=== PATIENT | female | born 1950 | race Caucasian/White ===

== ENCOUNTER 2020-12-04 06:44 | Observation (INO) ==
--- NOTE | 2020-11-27 13:31 | PAT Medication Instructions ---
Medication Instructions Date of Service November 27, 2020 Home Medications acetaminophen [Tylenol Arthritis Pain] 1,300 mg PO Q12H PRN aspirin [Aspir-81] 81 mg PO QAM atorvastatin 20 mg PO HS hydrochlorothiazide 25 mg PO QAM meloxicam 15 mg PO QAM metoprolol succinate 100 mg PO QAM potassium chloride 10 meq PO QAM ASK your surgeon for instructions meloxicam 15 mg PO QAM DO NOT take the morning of surgery hydrochlorothiazide 25 mg PO QAM potassium chloride 10 meq PO QAM Take morning of surgery With a small sip of water, OTHERWISE NOTHING TO EAT OR DRINK AFTER MIDNIGHT: acetaminophen [Tylenol Arthritis Pain] 1,300 mg PO Q12H PRN (okay to take up to 4 hours prior to surgery if needed) aspirin [Aspir-81] 81 mg PO QAM (continue as normal unless told otherwise by surgeon) metoprolol succinate 100 mg PO QAM Take evening before surgery acetaminophen [Tylenol Arthritis Pain] 1,300 mg PO Q12H PRN (if needed) atorvastatin 20 mg PO HS Other Notes If you have any questions please call us at [phone] or [phone] or [phone] or [phone]
--- NOTE | 2020-11-28 13:31 | Anesthesiology Consultation ---
Date of Service November 28, 2020 Assessment & Plan (1) Encounter for pre-operative examination: Chart Review Chart Review: Acceptable Risk for Surgery (pending surgeon ordered PCP clearance (done 11/22/20) and preop Covid testing results ) and Patient seen in Pre Admission Testing Awaiting surgeon ordered PCP clearance (done 11/22/20) Per PAT appt on 11/28/20, pt resides in [facility]. Wears mask, uses good hand hygiene and socially distances. Did travel to [facility] to visit children on the weekend of 11/16/20. No known Covid positive contacts or Covid related symptoms. No known Covid infection in the past 90 days. Preop Covid testing 11/29/20 at [facility] in [place]= will await results. Educated on importance of self quarantining, social distancing and wearing mask in public both for the patient and household contacts. Pt fully vaccinated. Pt's sister is coming up for her birthday on 11/29/20 and will be staying with her until surgery. Pt's sister is fully vaccinated. Otherwise patient lives alone. Pt educated that she should avoid other contacts from now until surgery due to Covid testing tomorrow- pt voices understanding. May get Covid testing done 11/29/20 or 11/30/20. Teaching & Discussion Pre-Anesthesia Teaching/Discussion Notes: Instructed NPO after midnight before surgery,except medications with 15 cc of water. Medication instructions provided according to the PAT guidelines. History Surgery Operation Date: 12/04/20 12:05 Proposed Procedures p Left Anterior Total Hip Arthroplasty - Jerrell Tam DO Height/Weight Height: 5 ft 3 in Weight: 82.4 kg Allergies Allergy/AdvReac Type Severity Reaction Status Date / Time rosuvastatin [From Crestor] AdvReac Unknown Muscle Pain Verified 11/19/20 13:47 Medications Home Medications Medication Instructions Recorded Confirmed Last Taken acetaminophen [Tylenol Arthritis 1,300 mg PO Q12H PRN 11/19/20 11/19/20 Unknown Pain] aspirin [Aspir-81] 81 mg PO QAM 11/19/20 11/19/20 Unknown atorvastatin 20 mg PO HS 11/19/20 11/19/20 Unknown hydrochlorothiazide 25 mg PO QAM 11/19/20 11/19/20 Unknown meloxicam 15 mg PO QAM 11/19/20 11/19/20 Unknown metoprolol succinate 100 mg PO QAM 11/19/20 11/19/20 Unknown potassium chloride 10 meq PO QAM 11/19/20 11/19/20 Unknown Past Medical History Medical History History of COVID-19 DX'D 05/31/20 [facility] [place], FEVER, ACHINESS, FATIGUE-RECOVERED AT HOME. COMPLETELY RECOVERED Hyperlipidemia Hypertension Osteoarthritis Vertigo ON OCC Exercise / Class Metabolic Activity II 4-5 Yardwork/Stairs/Walk up hill (one flight of stairs - no chest pain ) Past Family History Family History Grandmother (Paternal) Family history of diabetes mellitus Aunt Family history of diabetes mellitus Mother Family hx of colon cancer Past Surgical History Surgical History History of colonoscopy X 3 History of foot surgery RIGHT NEUROMA- Past Anesthesia History No Hx of Anesthesia Complications and No Family Hx of Anesthesia Complications History of PONV No Hx of PONV and No Hx of Motion Sickness Social History Smoking Status: Never smoker Do You Dip or Chew Tobacco: No Hx Alcohol Use: Yes Alcohol type: beer and wine alcohol intake frequency: a few times a month Hx Substance Use: No substance use type: does not use Review of Systems Occ reflux- diet dependent - relieved OTC antacids Occ snoring - no witnessed apnea- no history of sleep study Patient denies chest pain, shortness of breath, dyspnea on exertion, cough, wheezing, palpitations. No hx of seizures, stroke, MA. No hx of blood clots or blood transfusions Physical Exam Vital Signs VITALS BP 155/81 P 71 TEMP 98.0 SP02 97% RESP 16 Constitutional no acute distress ENMT Mouth: no TMJ clicking Thyromental Distance: > or= 3.5 Finger Breadths Mallampati Class: II Getting small filling to right front top tooth (surgeon aware per surgeon) Neck neck extension not limited Respiratory normal respiratory effort; no respiratory distress Auscultation: lungs clear to auscultation bilaterally; no wheezes Cardiovascular Rate/Rhythm: regular rate and regular rhythm Heart Sounds: no murmur Vessels: no carotid bruit Musculoskeletal Spine: no pain with cervical ROM Extremities: extremities normal to inspection Psychiatric Orientation: alert Lab Results Anesthesia Preop Results Results Anesthesia Widget: WBC 7.74 K/uL (4.8-10.8) 11/28/20 Hgb 13.9 g/dL (12.0-16.0) 11/28/20 Hct 41.0 % (37-47) 11/28/20 Plt 217 K/uL (130-400) 11/28/20 Na 138 mmol/L (136-145) 11/28/20 K 3.5 mmol/L (3.5-5.1) 11/28/20 Cl 103 mmol/L (98-107) 11/28/20 CO2 29 mmol/L (21-32) 11/28/20 BUN 21 mg/dl (7-18) H 11/28/20 Creat 0.89 mg/dl (0.6-1.2) 11/28/20 Glucose Level 126 mg/dl (70-99) H 11/28/20 PT 10.3 Seconds (9.0-12.0) 11/28/20 PTT 25.5 Seconds (21.0-31.0) 11/28/20 INR 1.0 (0.9-1.1) 11/28/20 HA1c 5.1 % (4.5-5.6) 11/28/20 Urine Color Yellow 11/28/20 Urine Appearance Clear (Clear) 11/28/20 Urine pH 5.0 (4.5-7.5) 11/28/20 Urine Specific Wilder 1.012 (1.000-1.030) 11/28/20 Urine Protein Negative (Negative) 11/28/20 Urine Glucose (UA) Negative (Negative) 11/28/20 Urine Ketones Negative (Negative) 11/28/20 Urine Blood Negative (Negative) 11/28/20 Urine Nitrite Negative (Negative) 11/28/20 Urine Bilirubin Negative (Negative) 11/28/20 Urine Urobilinogen Negative (Negative) 11/28/20 Urine Leukocyte Esterase Negative (Negative) 11/28/20 Blood Type A Positive 11/28/20 Antibody Screen NEGATIVE 11/28/20 Testing Electrocardiogram Date: 11/28/20 Findings: + NSR @ (64bpm ) Normal EKG per cardio. Chest X-Ray Date: 11/28/20 No pneumothorax. No pleural effusion. Small opacity is seen at the left base which could represent small atelectasis or superimposition of structures. The rest of bilateral lung parenchyma is clear. Cardiomediastinal silhouette is within normal limits in size. No significant pulmonary vascular congestion. Osseous structures: Degenerative changes of the spine are seen at multiple levels. IMPRESSION: 1. Possible small atelectasis at the left base.
--- NOTE | 2020-12-01 16:29 | History & Physical Report ---
Date of Service December 04, 2020 Assessment & Plan (1) Degenerative joint disease of left hip: I have indicated the patient for left anterior total hip replacement. The risks, benefits and complications of surgery were explained to the patient which include but not limited to infection, acute blood loss, DVT/PE, injury to nerves, vessels, bone, soft tissue, arthrofibrosis, chronic pain, failure of the prosthesis, hip dislocation, leg length discrepancy, need for additional surgery, cardiac and pulmonary events and . The patient wished to proceed with surgery and informed consent was obtained at this time. We will plan for 81mg ASA BID post-operatively for DVT prophylaxis. Upon discharge the patient will be discharged home with home health services. Appropriate clearances by PCP were obtained. History of Present Illness Chief Complaint: Left hip pain/DJD Primary Care Provider: Merary Stoll The patient is a 70 year old female who presents with complaints of severe left hip hip pain and DJD. The patient has failed outpatient conservative treatments to this point which included NSAIDs, IA corticosteroid injection, PT and HEP. The patient's pain and limited function have progressed to the point where they severely hinder their activities of daily living and they no longer tolerate exercise programs. They are requesting to proceed with total hip replacement surgery. Allergies Allergy/AdvReac Type Severity Reaction Status Date / Time rosuvastatin [From Crestor] AdvReac Unknown Muscle Pain Verified 12/04/20 07:36 Home Medications Medication Instructions Recorded Confirmed Type acetaminophen [Tylenol Arthritis 1,300 mg PO Q12H PRN 11/19/20 12/04/20 History Pain] aspirin [Aspir-81] 81 mg PO QAM 11/19/20 12/04/20 History atorvastatin 20 mg PO HS 11/19/20 12/04/20 History hydrochlorothiazide 25 mg PO QAM 11/19/20 12/04/20 History meloxicam 15 mg PO QAM 11/19/20 12/04/20 History metoprolol succinate 100 mg PO QAM 11/19/20 12/04/20 History potassium chloride 10 meq PO QAM 11/19/20 12/04/20 History Past Med/Surg History Medical History History of COVID-19 DX'D 05/31/20 [facility] [place], FEVER, ACHINESS, FATIGUE-RECOVERED AT HOME. COMPLETELY RECOVERED Hyperlipidemia Hypertension Osteoarthritis Vertigo ON OCC Surgical History History of colonoscopy X 3 History of foot surgery RIGHT NEUROMA- Family History Grandmother (Paternal) Family history of diabetes mellitus Aunt Family history of diabetes mellitus Mother Family hx of colon cancer Social History Smoking Status: Never smoker Second Hand Exposure: Yes (MOTHER SMOKED); Do You Dip or Chew Tobacco: No; Hx Alcohol Use: Yes Alcohol type: beer and wine Hx Substance Use: No Preferred Language: Jamaican Communication Ability: Effective Sanitary Landfill Supervisor Required: No Beliefs That Will Affect Care: None Current Living Situation: Alone current occupational status: retired Other Information That Helps Us Care for You: No Feels Safe at Home: Yes Safety Concerns: Feels Safe At This Time Assistive Devices: Cane, Contacts and Glasses Assistive Devices Comment: PT WILL WEAR GLASSES DOS/CANE PRN Review of Systems Review of Systems: All systems reviewed & are unremarkable except as noted in HPI & below Constitutional: as per Subjective / HPI Physical Exam Physical Exam: LLE NVSI +EHL/FHL/TA/GS SILT grossly, +2 DP pulse, compartments soft NT, limited painful ROM of the hip, antalgic gait. Constitutional: WD/WN, vitals as above Eyes: PERRL, conjunctivae normal, anicteric sclerae ENMT: external ear and nose normal, oropharynx normal Neck: trachea midline, no thyromegaly Respiratory: normal respiratory effort, lungs clear to auscultation Cardiovascular: RRR, no murmur, no edema Gastrointestinal (Abdomen): normal bowel sounds, soft, nontender, no hepatosplenomegaly Musculoskeletal: no cyanosis or clubbing, extremities motor strength 5/5 Skin: no rashes, warm and dry Neurologic: patellar DTR's 2+ bilat, sensation intact Psychiatric: A+Ox3, euthymic affect Lymphatic: no cervical or axillary lymphadenopathy Results & Data Results & Data ([facility]) Diagnostic Findings Multiple views of the hip demonstrates severe DJD with complete loss of the joint space. +osteophytes, +sclerosis, +subchondral cysts.
[~2020-12-04 06:44] MED LIST: ACETAMINOPHEN 500 MG TAB PO SCH; BUPIVACAINE 0.5 % 5 MG/1 ML PF 10ML VIAL ONE; FAMOTIDINE 20 MG TAB PO SCH; LR 500ML BOLUS, THEN 15ML/HR IV SCH; METOCLOPRAMIDE HCL 10 MG TABLET PO SCH; ROPIVACAINE 0.5% HCL/PF 150 MG, BUPIVACAINE 0.75% MPF 20 ML, EPINEPHrine 30MG/30ML (OR ... INSTIL SCH; TRANEXAMIC ACID 1,000 MG **IV Intra-op IV SCH; TRANEXAMIC ACID 1,000 MG **IV Pre-op IV SCH; dexAMETHasone 4 MG TAB PO SCH
[2020-12-04] MEDS ORDERED: fentaNYL citrate 100 MCG/2 ML VIAL ONE (08:25)
[2020-12-04] MEDS ORDERED: MIDAZOLAM HCL 1 MG/ML 2ML VIAL ONE ×2 (08:25→08:59)
[2020-12-04] MEDS ORDERED: fentaNYL citrate 100 MCG/2 ML VIAL IV PRN (08:41)
[2020-12-04] MEDS ORDERED: ONDANSETRON INJ 2 MG/ML 2 ML VIAL IV PRN ×2 (08:41→13:18)
[2020-12-04] MEDS ORDERED: ATROPINE SULFATE 0.1 MG/ML 10ML SYR IV PRN (08:41)
[2020-12-04] MEDS ORDERED: ePHEDrine sulfate 50 MG/ML AMP IV PRN (08:41)
[2020-12-04] MEDS ORDERED: ceFAZolin 2,000 MG/15 ML IV PUSH IV ONE (09:12)
--- NOTE | 2020-12-04 09:16 | History & Physical Bridge Note ---
Date of Service December 04, 2020 History & Physical Bridge Note I have examined the patient, reviewed the History & Physical and in the interval since the performance of the History & Physical I have noted the following changes of clinical significance: no changes noted
[2020-12-04] MEDS ORDERED: ORTHO JOINT ANESTHETIC ONE (09:26)
[2020-12-04] MEDS ORDERED: PROPOFOL IV EMULSION 10 MG/ML 20 ML VIAL IV ONE ×2 (10:12→11:47)
[2020-12-04] MEDS ORDERED: LIDOCAINE 2% 2 ML VIAL/AMP(20MG/ML) INFIL ONE (10:12)
[2020-12-04] MEDS ORDERED: ONDANSETRON INJ 2 MG/ML 2 ML VIAL ONE (10:21)
[2020-12-04] MEDS ORDERED: ePHEDrine sulfate 50 MG/ML AMP ONE (10:35)
--- NOTE | 2020-12-04 11:40 | Post Operative Brief Note ---
Immediate Post Op Note v1 Date of Surgery December 04, 2020 Pre & Post Diagnosis Operation Date: 12/04/20 09:25 Pre-Op Diagnosis: Unilateral Primary Osteoarthritis, Left Hip I identified the patient and participated in the time-out.: Yes Procedure Operation Date: 12/04/20 09:25 Actual Procedures p Left Anterior Total Hip Arthroplasty(Left) - Jerrell Tam DO Surgeon Jerrell Tam DO Staff Development Manager Bigg García Estimated Blood Loss 190 Findings Consistent with Post-Op Diagnosis Fluids See anesthesia report Specimens Femoral head Anesthesia Type Spinal MAC Complications none Disposition Disposition: Recovery Room Overlapping Procedure I was present for: the critical portions of procedure. I was immediately available: during the entire case. Back up surgeon: was not required during procedure.
--- NOTE | 2020-12-04 11:42 | Operative Report ---
Post Operative Report Pre & Post Diagnosis Operation Date: 12/04/20 09:25 Pre-Op Diagnosis: Unilateral Primary Osteoarthritis, Left Hip I identified the patient and participated in the time-out.: Yes Procedure Operation Date: 12/04/20 09:25 Actual Procedures p Left Anterior Total Hip Arthroplasty(Left) - Jerrell Tam DO Surgeon Jerrell Tam DO Medical Appliance Maker Bigg García Estimated Blood Loss 190 Findings Consistent with Post-Op Diagnosis Fluids See anesthesia report Specimens Femoral head Anesthesia Type Spinal MAC Complications none Disposition Disposition: Recovery Room Indications The patient is a 70-year-old female who presents with severe progressive left hip DJD who has failed outpatient conservative treatments. I indicated the patient for a anterior total hip replacement and the risks and benefits were explained in detail which include but not limited to infection, bleeding, blood clot, damage to surrounding bone, nerves, vessels, soft tissue, hip dislocation, failure of the prosthesis, leg length discrepancy, need for additional surgery and . The patient agreed to proceed with replacement of the hip and informed consent was obtained. Appropriate clearances were obtained. Description of Procedure COMPONENTS USED: [employer] hip system: Acetabulum size 48, femur size 3 a fit high offset, femoral head 32-3, liner 48x32, acetabular screw 25 mm x 1. DESCRIPTION OF PROCEDURE: Following satisfactory spinal anesthesia, the patient was placed supine on the OR table. The right leg was placed in the well leg wheeler and the left leg in the traction device. The left leg was prepared with ChloraPrep and draped sterilely. A surgical timeout was performed, patient identified and site alize verified. Appropriate antibiotics were given. A standard anterior approach in the interval between the sartorius and tensor muscles was performed. Dissection was carried down through subcutaneous tissu es. Electrocautery was utilized for hemostasis. Circumflex femoral vessels were identified, tied and ligated. The anterior capsular fat pad was removed and the capsulotomy was performed revealing the arthritic femoral neck and head. A femoral neck cut was made with reciprocating saw and the bone fragments removed. The acetabular self-retraining retractor was placed. Acetabular reaming was completed under fluoroscopic guidance, a 48 shell was impacted into an anatomic position and secured with a acetabular screw. Local anesthetic was placed and following irrigation, the polyethylene liner was placed. The femur was placed into position of external rotation, extension and adduction. Femoral canal was prepared up to the size 3 a fit high offset. Trial reduction with a 32-3 neck length head showed good soft tissue tension, leg lengths restored, and good fit and fill of the proximal canal using fluoroscopic landmarks. The hip was dislocated. The trial component was removed. The final implant was placed. The hip was irrigated with sterile saline solution and reduced. A Betadine soak was performed. After 3 minutes, the hip was once more irrigated with copious sterile saline solution with bacitracin. Ashwini-incisional soft tissue was injected utilizing [facility] [employer]omix which includes a combination of Ropivicaine 0.5% 150mg, Bupivicaine 0.5%/Epinephrine 1:200,000 30ml, Toradol 30mg, Dexamethasone 4mg, Ketamine 10mg, Clonidine 100mcg and NSS 30ml solution. The capsule was then closed with 1-0 Vicryl interrupted figure of eight sutures. The fascia was closed with a running suture of #1 Vicryl, the subcutaneous tissues with 2-0 Vicryl and the skin was closed with dulce. A sterile dry dressing was applied which included pankaj incisional VAC. The patient tolerated the procedure well and was transported to PACU in stable condition. Due to the complex nature of the procedure, the entire surgery was performed with the operational assistance of Bigg García PA-C. The sales and marketing assistant, under direct supervision, was involved in the actual performance of all aspects of the surgical procedure including patient positioning, hemostasis, tissue retraction, instrument management and wound closure. I attest to the content of the Intraoperative Record and any orders documented therein. Any exceptions are noted below.
--- NOTE | 2020-12-04 11:46 | Fluoroscopy Report ---
FL hip LT 1V HISTORY: 70 years-old Female LEFT ANTERIOR ANAY left hip total joint arthroplasty COMPARISON: None TECHNIQUE: 2 spot fluoroscopic images of the left hip were obtained utilizing 41.3 seconds fluoroscop y time FINDINGS: Left hip total joint arthroplasty demonstrates satisfactory alignment. No acute fracture. Expected po stoperative soft tissue swelling with deep tissue air. No unexpected opaque foreign body identified. Right hip osteoarthritis. IMPRESSION: Fluoroscopic assistance as above. ACT 112: Negative or not required by law. The above report was generated using voice recognition software. It may contain grammatical, syntax o r spelling errors. Electronically signed by: Kleber Longo M.D. 12/04/2020 11:45 AM
--- NOTE | 2020-12-04 12:30 | XRay Report ---
XR hip 1V LT w pelvis HISTORY: 70 years-old Female IN PACU - A/P PELVIS and LATERAL HIP [total joint arthroplasty COMPARISON: Fluoroscopic images of the left hip of same day TECHNIQUE: AP view the pelvis with crosstable lateral view of the left hip FINDINGS: Left hip total joint arthroplasty. Lateral left hip skin dulce with expected postoperative soft tis malachi swelling and deep tissue air. No acute fracture or unexpected opaque foreign body. There is at le ast mild right hip osteoarthritis. Degenerative changes of the lower lumbar spine. IMPRESSION: Left hip total joint arthroplasty with expected postoperative changes. ACT 112: Negative or not required by law. The above report was generated using voice recognition software. It may contain grammatical, syntax o r spelling errors. Electronically signed by: Kleber Longo M.D. 12/04/2020 12:29 PM
[2020-12-04] MEDS ORDERED: HYDROmorphone INJ 0.5 MG/0.5 ML SYR IV PRN (13:18)
[2020-12-04] MEDS ORDERED: METOCLOPRAMIDE HCL INJ 5 MG/ML 2 ML VIAL IV PRN (13:18)
[2020-12-04] MEDS ORDERED: oxyCODONE HCL IR 5 MG TAB (IMMEDIATE RELEASE) PO PRN (13:18)
[2020-12-04] MEDS ORDERED: MAGNESIUM HYDROXIDE SUSP 30 ML UDC PO PRN (13:18)
[2020-12-04] MEDS ORDERED: bisacodyL 10 MG SUPP PR PRN (13:18)
[2020-12-04] MEDS ORDERED: NALOXONE HCL 0.4 MG/1 ML VIAL/CARP IV PRN (13:18)
[2020-12-04] MEDS ORDERED: diphenhydrAMINE Capsule 25 MG CAP PO PRN (13:18)
--- NOTE | 2020-12-04 13:32 | Anesthesiology Progress Note ---
Date of Service December 04, 2020 Anesthesia Post Procedure Vital Signs Vital Signs: Temp Pulse Pulse Pulse Resp BP BP 12/04/20 13:22 36.5 C 63 18 118/76 12/04/20 12:50 36.4 C L 75 16 116/72 12/04/20 12:45 36.2 C L 75 14 112/66 12/04/20 12:35 73 14 117/68 12/04/20 12:25 77 14 120/74 12/04/20 12:15 75 14 112/72 12/04/20 12:05 77 16 111/65 12/04/20 12:03 36.6 C 87 17 109/67 12/04/20 07:14 36.9 C 87 20 178/86 H Pulse Ox 12/04/20 13:22 96 12/04/20 12:50 96 12/04/20 12:45 94 12/04/20 12:35 94 12/04/20 12:25 94 12/04/20 12:15 98 12/04/20 12:05 98 12/04/20 12:03 98 12/04/20 07:14 96 Pain Intensity Right Hip: Pain Intensity: 0 Transfer of Care Handoff Completed per policy Notes Mental Status: alert / awake / arousable and participated in evaluation Patient Amnestic to Procedure: Yes Nausea / Vomiting: adequately controlled Pain: adequately controlled Airway Patency, RR, SpO2: stable & adequate BP & HR: stable & adequate Hydration State: stable & adequate Neuraxial Anesthesia: was administered and sensory block is resolving Anesthetic Complications: no major complications apparent and Pt Satisfied with anesthetic care
[2020-12-04] MEDS: ACETAMINOPHEN 500 MG TAB PO SCH ×2 (14:48→21:07)
[2020-12-04] MEDS: SODIUM CHLORIDE 0.9% 1000ML 1,000 ML IV SCH ×2 (14:48→23:38)
[2020-12-04] MEDS: KETOROLAC TROMETHAMINE 15 MG/ML VIAL IV SCH ×2 (15:39→21:07)
[2020-12-04] MEDS: ceFAZolin 2000MG 2,000 MG/15 ML SYR IV SCH (17:33)
--- NOTE | 2020-12-04 19:50 | Orthopedic Progress Note ---
Date of Service December 04, 2020 Assessment & Plan (1) Degenerative joint disease of left hip: s/p left anterior ANAY -ancef x 24 -DVT ppx: SCDs, TEDs, 81mg ASA BID -WBAT LLE -PT/OT -PO XR demonstrates a well aligned well fixed prothesis without fracture/dislocation -am labs DC planning Admission and Anticipated Discharge Date Admission Date: December 04, 2020 Subjective Post Operative Progress Note Patient seen sitting up in bed, comfortable, denies complaints, pain well controlled, no acute issues. Review of Systems Review of Systems: All systems reviewed & are unremarkable except as noted in HPI & below Constitutional: as per Subjective / HPI Physical Exam Physical Exam: LLE NVSI +EHL/FHL/TA/GS SILT grossly, +2 DP pulse, compartments soft NT, dressing cdi. Constitutional: WD/WN, vitals as above [facility] Vital Signs (Past 12 Hours) Vital Signs Temp Pulse Pulse Resp BP Pulse Ox 12/04/20 15:55 36.3 C L 85 16 123/70 97 12/04/20 14:29 36.5 C 75 16 119/73 96 12/04/20 13:22 36.5 C 63 18 118/76 96 12/04/20 12:50 36.4 C L 75 16 116/72 96 12/04/20 12:45 36.2 C L 75 14 112/66 94 12/04/20 12:35 73 14 117/68 94 12/04/20 12:25 77 14 120/74 94 12/04/20 12:15 75 14 112/72 98 12/04/20 12:05 77 16 111/65 98 12/04/20 12:03 36.6 C 87 17 109/67 98
[2020-12-04] MEDS ORDERED: ATORVASTATIN 20 MG TAB PO SCH (21:00)
[2020-12-04] MEDS ORDERED: SENNA 8.6 MG TAB PO SCH (21:00)
[2020-12-04] MEDS: DOCUSATE SODIUM 100 MG CAP PO SCH (21:06)
[2020-12-05] MEDS: ceFAZolin 2000MG 2,000 MG/15 ML SYR IV SCH (03:03)
[2020-12-05] MEDS: KETOROLAC TROMETHAMINE 15 MG/ML VIAL IV SCH ×2 (03:04→10:04)
[2020-12-05] MEDS: ACETAMINOPHEN 500 MG TAB PO SCH ×2 (05:52→12:48)
[2020-12-05 08:35] LABS: Hematocrit (blood only) 34.4 % (37-47); Hemoglobin 11.3 g/dL (12.0-16.0); Immature Granulocytes # (auto) 0.03 K/uL (0.00-0.02); Immature Granulocytes % (auto) 0.2 %; Lymphocytes # (auto) 1.29 K/uL (1.2-3.4); Lymphocytes % (auto) 10.2 %; Mean Corpuscular Hemoglobin 30.1 pg (25-34); Mean Corpuscular Hgb Conc 32.8 g/dL (32-36); Mean Corpuscular Volume 91.5 fL (80-100); Mean Platelet Volume 9.1 fL (7.4-10.4); Monocytes # (auto) 0.61 K/uL (0.11-0.59); Monocytes % (auto) 4.8 %; Neutrophils # (auto) 10.69 K/uL (1.4-6.5); Neutrophils % (auto) 84.8 %; Platelet Count 228 K/uL (130-400); RDW Coefficient of Variation 13.7 % (11.5-14.5); RDW Standard Deviation 45.6 fL (36.4-46.3); Red Blood Count 3.76 M/uL (4.2-5.4); White Blood Count 12.62 K/uL (4.8-10.8)
[2020-12-05] MEDS: DOCUSATE SODIUM 100 MG CAP PO SCH (08:57)
[2020-12-05] MEDS ORDERED: POTASSIUM CHLORIDE 10 MEQ TABCR PO SCH (09:00)
[2020-12-05] MEDS ORDERED: hydroCHLOROthiazide 25 MG TAB PO SCH (09:00)
[2020-12-05] MEDS ORDERED: METOPROLOL SUCC 50MG EXT REL TAB PO SCH (09:00)
[2020-12-05] MEDS ORDERED: MULTIVITAMIN TAB PO SCH (09:00)
[2020-12-05] MEDS ORDERED: ASPIRIN 81 MG ECTAB PO SCH (09:00)
[2020-12-05 09:07] LABS: BUN Creatinine Ratio 23.6 (10-20); Calcium 8.7 mg/dl (8.5-10.1); Creatinine Clr Calc Pharmacy 60.2 ml/min; Est GFR (African American) 77.2 ml/min; Est GFR (Non-African American) 66.6 ml/min; Potassium 3.9 mmol/L (3.5-5.1)
--- NOTE | 2020-12-05 10:57 | Orthopedic Progress Note ---
Date of Service December 05, 2020 Assessment & Plan (1) Degenerative joint disease of left hip: s/p left anterior ANAY POD#1 -ancef x 24 -DVT ppx: SCDs, TEDs, 81mg ASA BID -WBAT LLE -PT/OT -PO XR demonstrates a well aligned well fixed prothesis without fracture/dislocation -am labs - as above, hgb 11.3 DC planning - home with Admission and Anticipated Discharge Date Admission Date: December 04, 2020 Subjective Post Operative Progress Note Patient seen sitting in chair at bedside, comfortable, denies complaints, pain well controlled, no acute issues. Denies F/C/N/V/SOB/CP. Review of Systems Review of Systems: All systems reviewed & are unremarkable except as noted in HPI & below Constitutional: as per Subjective / HPI Physical Exam Physical Exam: LLE NVSI +EHL/FHL/TA/GS SILT grossly, +2 DP pulse, compartments soft NT, dressing cdi. Constitutional: WD/WN, vitals as above Results & Data ([place]) Vital Signs (Past 12 Hours) Vital Signs Temp Pulse Pulse Resp BP Pulse Ox 12/05/20 08:05 36.4 C L 70 18 150/82 H 99 12/05/20 03:20 37.0 C 80 17 138/81 97 Laboratory Results 12/05/20 12/05/20 12/05/20 Range/Units 08:13 08:13 08:13 WBC 12.62 H (4.8-10.8) K/uL RBC 3.76 L (4.2-5.4) M/uL Hgb 11.3 L (12.0-16.0) g/dL Hct 34.4 L (37-47) % MCV 91.5 (80-100) fL MCH 30.1 (25-34) pg MCHC 32.8 (32-36) g/dL RDW Std Deviation 45.6 (36.4-46.3) fL RDW Coeff of [place] 13.7 (11.5-14.5) % Plt Count 228 (130-400) K/uL MPV 9.1 (7.4-10.4) fL Immature Gran % (Auto) 0.2 % Neut % (Auto) 84.8 % Lymph % (Auto) 10.2 % [place] % (Auto) 4.8 % Eos % (Auto) 0.0 % Baso % (Auto) 0.0 % Neut # (Auto) 10.69 H (1.4-6.5) K/uL Lymph # (Auto) 1.29 (1.2-3.4) K/uL [place] # (Auto) 0.61 H (0.11-0.59) K/uL Eos # (Auto) 0.00 (0-0.5) K/uL Baso # (Auto) 0.00 (0-0.2) K/uL Immature Gran # (Auto) 0.03 H (0.00-0.02) K/uL Sodium 139 (136-145) mmol/L Potassium 3.9 (3.5-5.1) mmol/L Chloride 107 (98-107) mmol/L Carbon Dioxide 24 (21-32) mmol/L Anion Gap 9.0 (3-11) BUN 21 H (7-18) mg/dl Creatinine 0.88 (0.6-1.2) mg/dl Est Cr Clr Drug Dosing 60.2 ml/min Est GFR ( Amer) 77.2 ml/min Est GFR (Non-Af Amer) 66.6 ml/min BUN/Creatinine Ratio 23.6 H (10-20) Glucose 116 H (70-99) mg/dl Calcium 8.7 (8.5-10.1) mg/dl Hepatitis C Ab Screen Neg (Neg)
--- NOTE | 2020-12-05 16:41 | Discharge Summary ---
Date of Service December 05, 2020 Admission HPI Per Admitting Provider The patient is a 70 year old female who presents with complaints of severe left hip hip pain and DJD/AVN. The patient has failed outpatient conservative treatments to this point which included NSAIDs, IA corticosteroid injection, PT and HEP. The patient's pain and limited function have progressed to the point where they severely hinder their activities of daily living and they no longer tolerate exercise programs. They are requesting to proceed with total hip replacement surgery. Principal Diagnosis Left anterior total hip replacement Discharge Exam LLE NVSI +EHL/FHL/TA/GS SILT grossly, +2 DP pulse, compartments soft NT, dressing cdi. Constitutional WD/WN, vitals as above Discharge Data Allergies Allergy/AdvReac Type Severity Reaction Status Date / Time rosuvastatin [From Crestor] AdvReac Unknown Muscle Pain Verified 12/04/20 07:36 Procedures Performed Operation Date: 12/04/20 09:25 Actual Procedures p Left Anterior Total Hip Arthroplasty(Left) - Jerrell Tam DO Ordered Studies 12/04/20 09:25 FL hip LT 1V Routine Hospital Course (1) Degenerative joint disease of left hip: The patient is a 70 -year-old female who presents with long standing history of severe left hip DJD/AVN and failed outpatient conservative treatments. The patient's symptoms have progressed to the point where it has been difficult to perform even normal activities of daily living. I indicated the patient for a left anterior total hip arthroplasty, the risks, benefits and complications of the procedure include but not limited to infection, bleeding, damage to bone, nerves, vessels, surrounding soft tissue, may develop blood clots, loss of function, leg length discrepancy, dislocation, failure of the components, loosening of the components, the need for additional surgery and . The patient wished to proceed with surgery at this time and informed consent was obtained. Hospital Course: On 12/04/20 the patient was taken to the operating room, adequate anesthesia administered and underwent a left anterior total hip arthroplasty. The patient tolerated the procedure well and was taken to the PACU in stable condition. Post-operatively the patient was started on a DVT ppx medication and given appropriate IV antibiotics. Consults were placed to physical therapy, occupational therapy and case management. On POD#1, the patient did well overnight and their pain was well controlled. Labs were drawn and the Hgb was 11.3. The patient progressed well with PT. Dressings were changed at this time and the incision was clean, dry and intact. The patients hospital stay was relatively uneventful and they were deemed stable by the orthopedic team and consultants to be discharged home with HH on 12/05/20. Discharge Instructions: Upon discharge the patient may weight bear as toleratess through their operative extremity. They were instructed to keep the incision clean and dry at all times. The patient may shower but should not submerge the incision, avoid bathing, pools and hot tubs. The patient was given a script for pain medication and should take as instructed. The patient was given a script for DVT ppx 81mg ASA BID and should take as directed. The patient was instructed to not drive or travel for long distances until cleared to do so. If the patient develops any symptoms of fevers, chills, nausea, vomiting, increased redness, swelling, pain or drainage from the surgical site, they should notify the office and/or proceed to the nearest emergency room. The patient should follow up in 10-14 days after surgery for their routine post-operative follow-up appointment and should call the office, to confirm the date and time. s/p left anterior ANAY POD#1 -ancef x 24 -DVT ppx: SCDs, TEDs, 81mg ASA BID -WBAT LLE -PT/OT -PO XR demonstrates a well aligned well fixed prothesis without fracture/dislocation -am labs - as above, hgb 11.3 DC planning - home with Total Time Total Time Spent Total Time Spent (In Minutes): 30 Discharge Plan Discharge Items Patient Disposition: Home - Home Health Services Reason For Visit: Unilateral Primary Osteoarthritis, Left Hip Discharge Diagnosis: Left anterior total hip replacement Condition on Discharge: Good Activity: Per Instructions section Lifting: Wait until after follow-up appointment Bathing: Keep incision dry Bathing Comment: No bathing, pools or hot tubs. Sexual Activity: Wait until after follow-up appointment Exercise/Sports: Wait until after follow-up appointment Driving/Machine Use: No driving. Weightbearing: Full weightbearing Non-emergency contact: Primary Care Provider and Surgeon Call non-emergency contact if: you have any medication questions, your symptoms worsen, your pain is not controlled, your pain is worsening, your pain is unusual for you, your pain is concerning for you, you have a fever, your temperature is above 101, your wound has increased redness, your wound has increased drainage and your wound pain has increased Follow-up/Referrals: Merary Stoll D.O. [Primary Care Provider] - Diet: Regular Addtl Attending Provider Instructions: ACTIVITY RECOMMENDATIONS: SELF CARE INSTRUCTIONS AFTER TOTAL HIP REPLACEMENT : Direct Anterior Approach Until the incision and soft tissues around your hip have healed, there is a possibility that the hip prosthesis could dislocate. A. Hip flexion ( Up & Down out of chair or steps ) may be difficult. This is normal. B. Numbness in front of the thigh is also normal for a few weeks. C. Use hand rails when walking on stairs. D. Wear low heeled shoes with non-slip soles. E. Be sure that your floors are free of things that could trip you - throw rugs, electrical cords, small objects. Avoid wet and waxed floors, especially with crutches and canes. F. Try to walk several times a day with rest periods between. G. Continue with all the exercises taught to you in the hospital. Again, make walking a part of your daily routine. SPECIAL CARE INSTRUCTIONS: VERY IMPORTANT TO READ AND REVIEW A. You may still be at risk for phlebitis and blood clots. 1. Wear surgical stockings (GI hose) for 2 weeks after surgery to improve circulation and reduce swelling. 2. Take Aspirin 81mg twice daily for 4 weeks or as directed by your doctor. This is your blood thinner. 3. High risk patients may be prescribed a stronger blood thinner if necessary. 4. If you are on Coumadin normally, your family doctor/hull inspector should monitor your blood work. Expect a phone call the day of or the day after bloodwork is drawn to adjust your dosage. B. You must take antibiotics before having dental work, bladder, bowel and other surgery. Your doctor will provide you with a permanent card to carry describing precautions. C. Call [facility] if you have a fever, redness or swelling around the incision, cloudy drainage from incision, or sudden increase in pain in your hip, not relieved by your regular pain medication. D. Please call the office at if you have any concerns or questions about your operation or recovery. * YOU MAY SHOWER, NO TUB BATHS UNTIL CLEARED BY YOUR DOCTOR. - Keep an extra close eye on the top portion of your incision. Be sure to keep clean & dry. * WEAR GI HOSE 20 HOURS PER DAY FOR 2 WEEKS. * YOU MAY PROGRESS FROM A WALKER, TO A CANE, TO INDEPENDENT AT YOUR OWN PACE. * MOST PATIENTS WILL HAVE HOME NURSING FOR THERAPY. IF YOU DECIDE TO DO OUTPATIENT PHYSICAL THERAPY, PLEASE SCHEDULE THIS 3 TIMES PER WEEK. *LINDSAY incisional vac is a special dressing covering your incision. This dressing provides a sterile dry environment while you are healing. The dressing is to be left in place for 7 days post-operatively. Your home nurse or surgeon will remove. If you develop any redness or blisters or have any questions notify your surgeon immediately. FOLLOW UP VISIT: If appointment is not already scheduled: Please call [facility] to make a follow-up appointment for 2 weeks after your surgery at . Pending Studies at Discharge: No Stand-Alone Forms: My [facility] [employer], Opioid Pain Management, Smoking Cessation Medications and DC Order Prescriptions: New acetaminophen 500 mg Tablet 1,000 mg PO Q8 PRN (Reason: fever or pain) Qty: 90 RF: 0 aspirin 81 mg Tablet,Delayed Release (Dr/Ec) 81 mg PO BID Qty: 56 RF: 0 celecoxib [Celebrex] 200 mg Capsule 200 mg PO BID PRN (Reason: pain) Qty: 30 RF: 0 oxycodone 5 mg Tablet 5 mg PO Q6H MDD 4 PRN (Reason: pain) Qty: 30 RF: 0 sennosides [Senokot] 8.6 mg Tablet 17.2 mg PO HS PRN (Reason: constipation) Qty: 30 RF: 0 Continued atorvastatin 20 mg Tablet 20 mg PO HS RF: 0 metoprolol succinate 100 mg Tablet Extended Release 24 Hr 100 mg PO QAM RF: 0 potassium chloride 10 mEq Tablet Extended Release 10 meq PO QAM RF: 0 hydrochlorothiazide 25 mg Tablet 25 mg PO QAM RF: 0 Discontinued meloxicam 15 mg Tablet 15 mg PO QAM RF: 0 aspirin [Aspir-81] 81 mg Tablet,Delayed Release (Dr/Ec) 81 mg PO QAM RF: 0 acetaminophen [Tylenol Arthritis Pain] 650 mg Tablet Extended Release 1,300 mg PO Q12H PRN (Reason: Pain) RF: 0 Discharge Orders: Discharge Order (Routine); Ordered 12/05/20 Ordered By: Bigg García Admission Data Admit Date/Time: 12/04/20 12:03 Attending Provider: Jerrell Tam Admit Provider: Jerrell Tam Primary Care Provider: Merary Stoll Other Interventions: Discharge Summary Assessment (RN) Last Done: 12/05/20 12:53
[2020-12-05] MEDS ORDERED: CeleBREX 200 MG CAP PO SCH (21:00)
== END 2020-12-05 13:11 | disposition home health service (06) ==
LOC: ASU 06:44 → 3E 06:44

== ENCOUNTER 2024-03-23 15:01 | Inpatient (IN) ==
[2024-03-23] MEDS: OPTIRAY 320 100ml IV ONE (17:22)
[2024-03-23 17:26] LABS: iSTAT Hemoglobin 14.3 g/dl (12.0-16.0); iSTAT Ionized Calcium 1.15 mmol/l (1.12-1.32); iSTAT Potassium 3.6 mmol/L (3.3-5.0)
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
[2024-03-23] MEDS: KETOROLAC TROMETHAMINE 15 MG/ML VIAL IV ONE (19:06)
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
[2024-03-23] MEDS ORDERED: ACETAMINOPHEN 325 MG TAB PO PRN (21:19)
[2024-03-23] MEDS ORDERED: KETOROLAC TROMETHAMINE 15 MG/ML VIAL IV PRN (21:19)
[2024-03-23] MEDS ORDERED: METHOCARBAMOL 500 MG TABLET PO PRN (21:19)
[2024-03-23 21:55] LABS: Hematocrit (blood only) 44.9 % (37.0-47.0); Hemoglobin 14.7 g/dl (12.0-16.0); Mean Corpuscular Hemoglobin 29.8 pg (25.0-34.0); Mean Corpuscular Hgb Conc 32.7 g/dL (32.0-36.0); Mean Corpuscular Volume 91.1 fL (80.0-100.0); Mean Platelet Volume 10.2 fL (9.4-12.4); Platelet Count 258 K/uL (130-400); RDW Coefficient of Variation 14.3 % (11.5-14.5); RDW Standard Deviation 47.7 fL (36.4-46.3); Red Blood Count 4.93 M/uL (4.20-5.40); White Blood Count 15.23 K/ul (4.8-10.8)
[2024-03-23] MEDS: ATORVASTATIN 20 MG TAB PO SCH (22:02)
[2024-03-23] MEDS: HEPARIN SOD 5,000 UNIT/0.5 ML VIAL SQ SCH (22:02)
--- NOTE | 2024-03-23 23:50 | CT Scan Report ---
Exam(s): CT HEAD Without Contrast EXAM: CT Head Without Intravenous Contrast CLINICAL HISTORY: Reason for exam: Presyncope. TECHNIQUE: Axial computed tomography images of the head/brain without intravenous contrast. CTDI is 35.65 mGy and DLP is 625.8 mGy-cm. Automated exposure control was utilized for the study. A dose lowering technique was utilized adhering to the principles of ALARA. COMPARISON: No relevant prior studies available. FINDINGS: No acute intracranial hemorrhage. No midline shift or mass effect. The territorial campos-white matter differentiation is maintained throughout. The ventricles and sulci are commensurate with age. The visualized orbits appear grossly unremarkable. The calvarium is intact. The visualized paranasal sinuses and mastoid air cells are grossly clear. IMPRESSION: No acute intracranial hemorrhage, midline shift, or mass effect. Electronically signed by: Dimitri Kelly MD 03/23/24 23:49 PM
[2024-03-24 03:55] VITALS: TEMP 98.8
[2024-03-24 07:12] LABS: Hematocrit (blood only) 36.4 % (37.0-47.0); Hemoglobin 12.3 g/dl (12.0-16.0); Mean Corpuscular Hemoglobin 29.9 pg (25.0-34.0); Mean Corpuscular Hgb Conc 33.8 g/dL (32.0-36.0); Mean Corpuscular Volume 88.6 fL (80.0-100.0); Mean Platelet Volume 9.8 fL (9.4-12.4); Platelet Count 189 K/uL (130-400); RDW Coefficient of Variation 14.5 % (11.5-14.5); RDW Standard Deviation 46.8 fL (36.4-46.3); Red Blood Count 4.11 M/uL (4.20-5.40); White Blood Count 8.53 K/ul (4.8-10.8)
[2024-03-24] MEDS: METOPROLOL SUCC 50MG EXT REL TAB PO SCH (07:27)
[2024-03-24] MEDS: hydroCHLOROthiazide 25 MG TAB PO SCH (07:27)
[2024-03-24] MEDS: LIDOCAINE 5% 1 PATCH TD SCH (07:28)
[2024-03-24 07:40] VITALS: BP 138/78; RESP 18; O2SAT 95
[2024-03-24 07:41] LABS: Estimated Average Glucose 111 mg/dl; Hemoglobin A1C 5.5 % (4.5-5.6)
[2024-03-24] MEDS: POTASSIUM CHLORIDE 10 MEQ TABCR PO SCH (08:12)
[2024-03-24 08:50] LABS: Calcium 9.1 mg/dl (8.6-10.3); Magnesium 1.9 mg/dl (1.7-2.4); Potassium 3.3 mmol/L (3.5-5.1)
[2024-03-24 08:55] LABS: BUN Creatinine Ratio 28.7 (10-20); Creatinine Clr Calc Pharmacy 58.9 ml/min; Est GFR (African American) 76.6 ml/min; Est GFR (Non-African American) 66.1 ml/min
[2024-03-24 10:54] VITALS: PULSE 83
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
--- NOTE | 2024-03-25 23:02 | Electrocardiogram Report ---
Test Reason : Blood Pressure : */* mmHG Vent. Rate : 71 BPM Atrial Rate : 71 BPM P-R Int : 178 ms QRS Dur : 88 ms QT Int : 400 ms P-R-T Axes : 29 14 41 degrees QTcB Int : 434 ms Normal sinus rhythm Normal ECG When compared with ECG of 28-Nov-2020 14:04, Questionable change in QRS axis Confirmed by Twin Smith ([id number]) on 03/25/2024 11:02:13 PM Referred By: REFERRED SELF Confirmed By: Twin Smith
== END 2024-03-24 11:38 | disposition home or self-care (01) | DRG 552 ==
LOC: ED 15:01 → SUATTDRO 18:58 → 2N 18:58

== ENCOUNTER 2024-08-22 09:19 | Observation (INO) ==
--- NOTE | 2024-07-22 15:45 | PAT Medication Instructions ---
Medication Instructions Date of Service July 22, 2024 Home Medications atorvastatin 20 mg tablet 20 mg PO HS hydrochlorothiazide 25 mg tablet 25 mg PO QAM metoprolol succinate 100 mg tablet,extended release 24 hr 100 mg PO QAM potassium chloride 10 mEq tablet,extended release 10 meq PO QAM acetaminophen 500 mg tablet 1,000 mg PO UD PRN fever or pain aspirin 81 mg tablet,delayed release 81 mg PO DAILY ASK your prescriber and surgeon aspirin 81 mg tablet,delayed release 81 mg PO DAILY DO NOT take the morning of surgery hydrochlorothiazide 25 mg tablet 25 mg PO QAM potassium chloride 10 mEq tablet,extended release 10 meq PO QAM Take morning of surgery With a small sip of water, OTHERWISE NOTHING TO EAT OR DRINK AFTER MIDNIGHT: metoprolol succinate 100 mg tablet,extended release 24 hr 100 mg PO QAM acetaminophen 500 mg tablet 1,000 mg PO UD PRN fever or pain (if needed) Take evening before surgery atorvastatin 20 mg tablet 20 mg PO HS acetaminophen 500 mg tablet 1,000 mg PO UD PRN fever or pain (if needed) Other Notes If you have any questions please call us at [phone] or [phone] or [phone] or [phone]
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
[~2024-08-22 09:19] MED LIST changes: -ACETAMINOPHEN 500 MG TAB PO SCH; -FAMOTIDINE 20 MG TAB PO SCH; -LR 500ML BOLUS, THEN 15ML/HR IV SCH; -METOCLOPRAMIDE HCL 10 MG TABLET PO SCH; -ROPIVACAINE 0.5% HCL/PF 150 MG, BUPIVACAINE 0.75% MPF 20 ML, EPINEPHrine 30MG/30ML (OR ... INSTIL SCH; -TRANEXAMIC ACID 1,000 MG **IV Intra-op IV SCH; -TRANEXAMIC ACID 1,000 MG **IV Pre-op IV SCH; -dexAMETHasone 4 MG TAB PO SCH
[2024-08-22] MEDS ORDERED: MIDAZOLAM HCL 1 MG/ML 2ML VIAL ONE (09:49)
[2024-08-22] MEDS ORDERED: fentaNYL citrate PF 100 MCG/2 ML VIAL ONE (09:49)
[2024-08-22] MEDS ORDERED: ONDANSETRON INJ 2 MG/ML 2 ML VIAL ONE (09:50)
[2024-08-22] MEDS ORDERED: PROPOFOL IV EMULSION 10 MG/ML 20 ML VIAL IV ONE (09:50)
[2024-08-22] MEDS ORDERED: ePHEDrine sulfate 50 MG/ML AMP ONE ×2 (09:55→09:58)
[2024-08-22] MEDS: LR 60ML/HR IV SCH (10:08)
[2024-08-22] MEDS: LR 15ML/HR IV SCH (10:18)
[2024-08-22] MEDS: ACETAMINOPHEN 500 MG TAB PO SCH ×2 (10:23→17:08)
[2024-08-22] MEDS: dexAMETHasone**PF** 10 MG/ML VIAL IV SCH (10:23)
[2024-08-22] MEDS: FAMOTIDINE 20 MG TAB PO SCH (10:23)
[2024-08-22] MEDS: GABAPENTIN 300 MG CAP PO SCH (10:23)
--- NOTE | 2024-08-22 10:32 | History & Physical Bridge Note ---
Date of Service August 22, 2024 History & Physical Bridge Note I have examined the patient, reviewed the History & Physical and in the interval since the performance of the History & Physical I have noted the following changes of clinical significance: no changes noted
[2024-08-22] MEDS: TRANEXAMIC ACID 1,000 MG **IV Pre-op IV SCH (11:11)
[2024-08-22] MEDS: ceFAZolin 2000MG 2,000 MG/15 ML SYR IV SCH ×2 (11:19→18:14)
[2024-08-22] MEDS ORDERED: GLYCOPYRROLATE 0.2 MG/ML VIAL ONE (11:45)
[2024-08-22] MEDS: TRANEXAMIC ACID 1,000 MG **IV Intra-op IV SCH (12:21)
[2024-08-22] MEDS ORDERED: ONDANSETRON INJ 2 MG/ML 2 ML VIAL IV PRN ×2 (12:27→13:49)
[2024-08-22] MEDS ORDERED: fentaNYL citrate PF 100 MCG/2 ML VIAL IV PRN (12:27)
[2024-08-22] MEDS ORDERED: ATROPINE SULFATE 0.1 MG/ML 10ML SYR IV PRN (12:27)
[2024-08-22] MEDS ORDERED: PROMETHAZINE HCL 6.25 MG in SODIUM CHLORIDE 0.9% 50 ML IV PRN (12:27)
[2024-08-22] MEDS ORDERED: ePHEDrine sulfate 50 MG/ML AMP IV PRN (12:27)
[2024-08-22] MEDS: ROPIV 0.5% 246mg, Ketorolac 30mg, EPINEPHrine 0.5mg in NSS INFIL SCH (12:30)
--- NOTE | 2024-08-22 12:41 | Operative Report ---
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 Post-Op Diagnosis: Right Shoulder Rotator Cuff Athropathy with tendinopathy long head of the biceps tendon I identified the patient and participated in the time-out.: Yes Procedure Operation Date: 08/22/24 11:10 Actual Procedures p Right Reverse Total Shoulder Arthroplasty with open biceps tenodesis as a distinct and separate procedure (modifier 59)- Valdez Bradley DO Surgeon Valdez Bradley DO Hearing Aid Mechanic Jurgen Mcghee PA-C Estimated Blood Loss 200 Findings Consistent with Post-Op Diagnosis Specimens Right humeral head Description of Procedure A CPT code modifier 59: The long head of the biceps tendon was enlarged and inflamed consistent with tendinopathy. A tenodesis was opted. This was a separate and distinct portion of the procedure. For these reasons, a CPT code modifier 59 will be added to this case. Implants used: I used a [employer] Comprehensive reverse total shoulder arthroplasty system with a size 8 press fit micro humeral stem, a +6 offset humeral tray and a standard humeral bearing, a 25 mm small augment baseplate with a 6.5 mm central screw and superior and inferior locking screws, and a size 36 mm eccentric glenosphere. Jimena arrived at [facility] for the above procedure. She was seen in the preoperative holding area and the operative extremity was identified and signed. She was given a preoperative antibiotic, TXA, and an interscalene nerve block. She was taken back to the operating room, laid on table in supine position, and put under general anesthesia. She was then put into the beachchair position. The shoulder was then prepped and draped in sterile fashion. A timeout was done and the patient and the operative extremity was properly identified. A deltopectoral approach was used. Dissection was taken down through the fascia and the deltoid was retracted laterally and the conjoined tendon was retracted medially. The anterior shoulder was exposed. The biceps groove was opened up and the biceps tendon was examined extensively. The biceps tendon demonstrated enlargement and inflammatory changes consistent with longstanding inflammation i n the context of osteoarthritis and cuff arthropathy. The long head of the biceps tendon was then tenodesed to the upper border of the pectoralis major. This was a separate and distinct portion of the procedure. The subscapularis was then directly released off the lesser tuberosity with a peel technique. The inferior capsule was released and the humeral head was dislocated. A canal finding reamer was sent down the center of the humeral canal. Sequential reaming up to a size 8 reamer was done. Off that reamer, a proximal humeral resection guide was placed. The proximal humerus was resected at 135 of inclination and 25 of retroversion. Osteophytes were then removed and the glenoid was exposed. Time was spent doing a complete capsular and labral release. The glenoid guide was then placed in the inferior aspect of the glenoid. A 3.2 mm Steinmann pin was then placed into the glenoid vault at 10 of inclination. The glenoid baseplate was then reamed. The final size 25 mm small augment baseplate was then impacted in the place. A 6.5 mm central screw was then placed followed by superior and inferior locking screws. A 36 mm eccentric glenosphere was then impacted into place. Surrounding soft tissues were then injected with 100 cc an orthopedic pain control cocktail. The proximal humerus was then exposed. Sequential broaching of the humerus up to a size 8 broach was done. Off that broach a +6 offset humeral tray was trialed. The shoulder was then reduced, brought through a full range of motion, and felt to be stable. The shoulder was then dislocated and the broach was removed. The final size 8 micro press-fit humeral stem was then impacted into place. A standard humeral bearing was then snapped onto a +6 offset humeral tray. The humeral tray was then impacted onto the humeral stem. The shoulder was once again reduced, brought through a full range of motion, and felt to be stable. Subscapularis was poor quality and unable to be repaired. A dilute betadyne lavage was then done for 3 minutes. The joint was then irrigated with normal saline solution. Hemostasis was obtained. The interval was closed with 2-0 Vicryl suture. The skin was then closed with 2-0 Vicryl and dulce. A Silverlon dressing was placed and the arm was rested in a regular arm sling. She was then extubated and transferred to a hospital bed. She taken to the postanesthesia care unit in stable condition. She tolerated the procedure well. Jurgen Mcghee PA-C, was present for the entire procedure. He was critical for patient positioning, prepping, draping, retraction exposure, wound closure and application of sterile dressing. I attest to the content of the Intraoperative Record and any orders documented therein. Any exceptions are noted below.
[2024-08-22] MEDS: ORTHO JOINT ANESTHETIC ONE (12:46)
--- NOTE | 2024-08-22 13:08 | XRay Report ---
XR shoulder RT min 2V routine CLINICAL HISTORY: Post shoulder surgery COMPARISON: None FINDINGS: Right shoulder prosthesis shows no hardware complication. There is expected soft tissue ga s. Skin dulce are present. IMPRESSION: Unremarkable postoperative exam. ACT 112: Negative or not required by law. Electronically signed by: Gary Lowe M.D. 08/22/2024 1:06 PM
--- NOTE | 2024-08-22 13:35 | Anesthesiology Progress Note ---
Date of Service August 22, 2024 Anesthesia Post Procedure Vital Signs Vital Signs: Temp Pulse Pulse Resp BP Pulse Ox O2 Del Method 08/22/24 13:30 71 17 119/70 95 Room Air 08/22/24 13:20 69 12 120/67 96 Room Air 08/22/24 13:10 36.4 C L 72 13 121/76 97 Room Air 08/22/24 13:00 76 15 130/82 100 Oxymask 08/22/24 12:50 74 16 122/65 100 Oxymask 08/22/24 12:44 36.5 C 66 12 108/69 97 Oxymask 08/22/24 09:50 36.7 C 76 20 145/84 H 99 Room Air O2 Flow Rate 08/22/24 13:30 08/22/24 13:20 08/22/24 13:10 08/22/24 13:00 2 08/22/24 12:50 9 08/22/24 12:44 9 08/22/24 09:50 Pain Intensity Right Arm: Pain Intensity: 5 Transfer of Care Handoff Completed per policy Notes Mental Status: alert / awake / arousable Patient Amnestic to Procedure: Yes Nausea / Vomiting: adequately controlled Pain: adequately controlled Airway Patency, RR, SpO2: stable & adequate BP & HR: stable & adequate Hydration State: stable & adequate Anesthetic Complications: no major complications apparent
[2024-08-22] MEDS ORDERED: oxyCODONE HCL IR 5 MG TAB (IMMEDIATE RELEASE) PO PRN (13:49)
[2024-08-22] MEDS ORDERED: MAGNESIUM HYDROXIDE SUSP 30 ML UDC PO PRN (13:49)
[2024-08-22] MEDS ORDERED: NALOXONE HCL 0.4 MG/1 ML VIAL/CARP IV PRN (13:49)
[2024-08-22] MEDS ORDERED: bisacodyL 10 MG SUPP PR PRN (13:49)
[2024-08-22] MEDS ORDERED: HYDROmorphone INJ 0.5 MG/0.5 ML SYR IV PRN (13:49)
[2024-08-22] MEDS ORDERED: METOCLOPRAMIDE HCL INJ 5 MG/ML 2 ML VIAL IV PRN (13:49)
[2024-08-22] MEDS: BUPIVACAINE LIPOSOME 1.3% 133 MG/10 ML VIAL ONE (14:04)
[2024-08-22] MEDS: KETOROLAC TROMETHAMINE 15 MG/ML VIAL IV SCH (15:46)
[2024-08-22] MEDS ORDERED: ceFAZolin 1000MG 1,000 MG/7.5 ML SYR IV SCH (19:00)
[2024-08-22 19:52] VITALS: RESP 18
[2024-08-22] MEDS: SENNA 8.6 MG TAB PO SCH (20:40)
[2024-08-22] MEDS: DOCUSATE SODIUM 100 MG CAP PO SCH (20:40)
[2024-08-22] MEDS: ATORVASTATIN 20 MG TAB PO SCH (20:41)
[2024-08-23 07:29] VITALS: BP 156/76; PULSE 77; TEMP 97.5; O2SAT 94
--- NOTE | 2024-08-23 07:53 | Orthopedic Progress Note ---
Date of Service August 23, 2024 Assessment & Plan (1) Status post reverse total replacement of right shoulder: Overall she is doing very well. She is not having much pain in the right shoulder. She will be seen by physical therapy today for ambulation and range of motion exercises. She can be discharged to home later today. She will follow-up orthopedics in 2 weeks. Subjective Jimena was seen and examined at bedside this morning. Overall she is doing very well. She is not having much pain in the right shoulder. She has been up and ambulating to the bathroom. She has no complaints.. Review of Systems All systems reviewed & are unremarkable except as noted in HPI & below. Physical Exam On physical exam of the right shoulder, the dressing is clean and dry. She is wearing her sling as instructed. She has active motion of her hand and her wrist.. Results & Data Results & Data Laboratory Results . Diagnostic Findings Postoperative x-rays of the right shoulder show the prosthesis to be in anatomic alignment without any evidence of fracture complication, or loosening.. PG Care Time/CCT Total # of Minutes Spent Total Time Spent with Patient: Total time spent is greater than 50% in coordination of care (as documented) at patient's floor/unit and/or counseling patient: Coding Level of Care Code 91723 Post Operative Follow-Up Diagnoses Status post reverse total replacement of right shoulder Z96.611
--- NOTE | 2024-08-23 07:53 | Discharge Summary ---
Date of Service August 23, 2024 Principal Diagnosis Same as "Discharge Diagnosis" noted below under Discharge Instructions. Discharge Exam On physical exam of the right shoulder, the dressing is clean and dry. She is wearing her sling as instructed. She has active motion of her hand and her wrist.. Discharge Data Procedures Performed Operation Date: 08/22/24 11:10 Actual Procedures p Right Reverse Total Shoulder Arthroplasty(Right) - Valdez Bradley DO Ordered Studies 08/22/24 05:00 US - OR guided needle placemen Routine Hospital Course (1) Status post reverse total replacement of right shoulder: On August 22, [address] [facility] and underwent a right reverse shoulder replacement without complication. She had a general anesthetic and a right interscalene nerve block. Postoperatively, she was placed in a sling and transferred to the general orthopedic floors. Her hospital course was uneventful. On postop day #1, her vital signs were stable and her pain was well-controlled. She was able to participate well with physical therapy doing ambulation and range of motion exercises. She was then discharged to home. She will follow with orthopedics in 2 weeks. PG Care Time/CCT Total # of Minutes Spent Total Time Spent with Patient: Total time spent is greater than 50% in coordination of care (as documented) at patient's floor/unit and/or counseling patient: Discharge Plan Discharge Items Patient Disposition: Home - Self-Care Reason For Visit: Right Shoulder Arthritis Discharge Diagnosis: Right reverse shoulder replacement Activity: Per Instructions section Non-emergency contact: Surgeon Call non-emergency contact if: your wound has increased redness and your wound has increased drainage Follow-up/Referrals: Sonal Peralta DO [Primary Care Provider] - Diet: Regular Addtl Attending Provider Instructions: Activity and Therapy Recommendations: * If you are using [facility] then therapy will be provided at your home until they feel you have accomplished all of your goals. * If you are using [facility] then Physical Therapy will be provided until they feel you are ready to start Outpatient Physical Therapy. * If you are not using home therapy then Outpatient Physical Therapy should start about 3-5 days from your day of surgery. Therapy will last about 8-12 weeks * Wear your sling for 3 weeks, unless otherwise instructed. You may remove your sling to shower and to dress, but otherwise, you should be in your sling at all times, including while sleeping * The shoulder replacement is very stable and you can use your hand while in the sling * You were shown a series of exercises in the hospital. Do these exercises daily including the exercises you were shown in physical therapy. Medications: * Narcotic You will likely be sent home from the hospital with a prescription for the narcotic pain medication that worked best throughout your stay. * Cefadroxil -take the antibiotic twice a day for 10 days to help prevent infection. * Other medications may be prescribed for specific circumstances. If you have any questions, please call the office at . * Resume previous home medications unless otherwise instructed Dressing Care: Leave the Silverlon dressing in place for 7 days. After 7 days you may remove the dressing. If the incision is not draining then you may leave the dulce open to air. If there is a little bit of drainage or if the dulce are getting stuck on your clothing then cover the incision with a dry dressing. The dulce will be removed at your 2 week follow-up appointment. Showering: You may shower with the Silverlon dressing in place. Do not let the shower spray hit the dressing directly. Pat the Silverlon dressing dry. If the dressing becomes wet underneath, then simply remove the dressing. Keep the incision dry until you are 7 days out from the day of surgery. After 7 days you may remove the Silverlon dressing and shower with the dulce exposed. Let soapy water run over the dulce and pat them dry. Do not scrub or soak the incision. Diet: You may resume your previous diet. Things To Watch For: * Drainage from the incision site that occurs more than one week after your surgery. * Increased redness at the incision site. * Fever above 102 degrees Fahrenheit. * Unusual chest pain or shortness of breath. * Call [facility] at with any of the above problems Follow-Up Visit: Follow-up with Dr. Bradley's office 2-3 weeks after your day of surgery. We will remove your dulce and answer any questions. If you have any additional questions or concerns, Dr Bradley is usually in the office at the same time and will be available An appointment was probably scheduled when you signed-up for surgery in the office. If you have any questions call More detailed instructions as well as Frequently Asked Questions were provided in a folder by our office when you signed-up for surgery. Please review these instructions when you get home. If you have any further questions or concerns, please feel free to call the office at [phone] Pending Studies at Discharge: No Stand-Alone Forms: My [facility] Dress Code, Smoking Cessation Medications and DC Order Prescriptions: New cefadroxil 500 mg capsule 500 mg PO BID 10 Days Qty: 20 0RF oxycodone 5 mg tablet 5 mg PO Q6H PRN (Reason: pain) Qty: 30 0RF Continued atorvastatin 20 mg Tablet 20 mg PO HS metoprolol succinate 100 mg Tablet Extended Release 24 Hr 100 mg PO QAM potassium chloride 10 mEq Tablet Extended Release 10 meq PO QAM hydrochlorothiazide 25 mg Tablet 25 mg PO QAM acetaminophen 500 mg tablet 1,000 mg PO UD PRN (Reason: fever or pain) aspirin 81 mg tablet,delayed release (DR/EC) 81 mg PO DAILY Discharge Orders: Discharge Order (Routine); Ordered 08/23/24 Ordered By: Valdez Bradley Admission Data Admit Date/Time: 08/22/24 12:19 Attending Provider: Valdez Bradley Admit Provider: Valdez Bradley Primary Care Provider: Sonal Peralta
[2024-08-23] MEDS: dexAMETHasone 4 MG TAB PO SCH (08:29)
[2024-08-23] MEDS: METOPROLOL SUCC 50MG EXT REL TAB PO SCH (08:29)
[2024-08-23] MEDS: ASPIRIN 81 MG ECTAB PO SCH (08:29)
[2024-08-23] MEDS: hydroCHLOROthiazide 25 MG TAB PO SCH (08:29)
[2024-08-23] MEDS: MULTIVITAMIN TAB PO SCH (08:30)
== END 2024-08-23 10:44 | disposition home or self-care (01) ==
LOC: ASU 09:19 → 3W 09:19